=== PATIENT | female | born 1955 | race Caucasian/White ===

== ENCOUNTER 2017-01-29 07:21 | Day surgery (SDC) | payer BC ==
--- NOTE | 2017-01-26 14:03 | HP ---
CC: Jono Quintero MD; Dr. Navarrete in [facility] * ADMITTING HISTORY AND PHYSICAL: DATE OF ADMISSION: 01/29/17 ADMITTING DIAGNOSES: 1. Right hydronephrosis. 2. Right ureteropelvic junction obstruction. PLANNED PROCEDURE: Right retrograde pyelogram, right stent insertion, possible balloon dilatation. SURGEON: Dr. Thompson. ADMITTING HISTORY AND PHYSICAL: Nell Atkinson is a 61-year-old lady who I had originally evaluated about a year ago for right hydronephrosis secondary to ureteropelvic junction obstruction. She subsequently was worked up after stent removal and a diagnosis of right ureteropelvic junction obstruction was confirmed. She was referred to Dr. Navarrete for a robotic pyeloplasty. For several reasons, I found out recently that the pyeloplasty was not done and a followup ultrasound in my office revealed increase in right hydronephrosis with increased cortical echogenicity. She is now being brought in for right stent insertion prior to any definitive therapy for the ureteropelvic junction obstruction. PAST MEDICAL HISTORY: Significant for; 1. Right ureteropelvic junction obstruction. 2. Parkinson's. 3. Hypertension. 4. History of fibroid uterus. 5. Asthma. MEDICATIONS: On admission, 1. Albuterol 2 puffs every 4 hours as needed. 2. Pulmicort inhaler twice daily. 3. Carbidopa/levodopa 25/100 one tablet 3 times a day. 4. Clonazepam 0.125 mg half tablet daily. 5. Sunni one tablet daily. 6. Hydrochlorothiazide 25 mg daily. 7. Isradipine 2.5 mg twice a day. 8. Singulair 10 mg daily. 9. Azilect 1 mg daily. 10. ReQuip 2 mg daily. 11. Zoloft 50 mg daily. ALLERGIES: No known drug allergies. REVIEW OF SYSTEMS: She denies any chest pain or shortness of breath. There is no history of diabetes mellitus. PHYSICAL EXAMINATION GENERAL: Physical exam reveals a pleasant middle-aged lady. VITAL SIGNS: Blood pressure is 116/78, pulse 68 per minute and regular, oxygen saturation 98% on room air. LUNGS: Clear bilaterally. CARDIOVASCULAR EXAM: Regular rate and rhythm. S1, S2. ABDOMEN: Soft with mild right flank tenderness. IMPRESSION: A 61-year-old lady with right ureteropelvic junction obstruction who has had progression of right hydronephrosis and increased right renal cortical echogenicity. PLAN: The plan is for right retrograde, right stent insertion, possible balloon dilatation. [id number]/[facility] #: [id number] MTDD
[~2017-01-29 07:21] MED LIST: Acetaminophen TAB* 325 MG ONE; Acetaminophen TAB* 325 MG PO ONE; Buffered Lidocaine 0.9% SYRIN* 5 ML/SYR SYRINGE INTRADERM ONE; Buffered Lidocaine 0.9% SYRIN* 5 ML/SYR SYRINGE ONE; Dexamethasone IV* 4 MG/ML 1 ML (4 MG) ONE; Famotidine IV* 10 MG/ML 2 ML (20 mg) IV ONE; Famotidine IV* 10 MG/ML 2 ML (20 mg) ONE; Furosemide IV* 10 MG/ML 2 ML VIAL (20 MG) ONE; Lidocaine 2% PF * 5 ML VIAL ONE; Midazolam* 1 MG/ML 2 ML VIAL (2 MG) ONE; Ondansetron INJ* 2 MG/ML VIAL IV ONE; Ondansetron INJ* 2 MG/ML VIAL ONE; Propofol* 10 MG/ML 20 ML BTL IV PUSH ONE; cefTRIAXone(*) 2 GM ADDV.VIAL IVPB ONE; fentaNYL* 50 MCG/ML 2 ML VIAL (100 MCG VIAL) ONE
[2017-01-29] MEDS ORDERED: Iohexol 180 (CONTRAST) 10 ML SDV IV ONE (08:17)
[2017-01-29] MEDS ORDERED: fentaNYL* 50 MCG/ML 2 ML VIAL (100 MCG VIAL) IV PRN (08:55)
[2017-01-29] MEDS ORDERED: oxyCODONE TAB* 5 MG TAB PO PRN (08:55)
[2017-01-29] MEDS ORDERED: Scopolamine 1.5 mg* PATCH TRANSDERM PRN (08:55)
[2017-01-29] MEDS ORDERED: Ibuprofen TAB* 600 MG PO PRN (08:55)
[2017-01-29] MEDS ORDERED: Naloxone* 0.4 MG/ML 10 ML VIAL ONE (09:25)
--- NOTE | 2017-01-29 09:53 | RAD ---
INDICATION: Right ureteral stent placement COMPARISON: February 02, 2016 FINDINGS: 11 seconds of fluoroscopy were provided for the urology department. Fluoroscopic spot imaging of the abdomen were obtained for operative control and show right ureteral stent placement. The collecting system is again noted to be dilated. CPT II Codes: 6045F (fluoro time doc)
[2017-01-29] MEDS ORDERED: Levalbuterol 1.25MG/0.5ML NEB ONE (10:32)
--- NOTE | 2017-01-29 11:12 | RAD ---
Indication: Postop RIGHT ureteral stent placement and balloon dilatation. Comparison: January 28, 2016 CT abdomen and October 30, 2004 chest radiograph. Technique: Upright AP 1050 hours Report: Prominence of the interstitial markings with thickened peripheral intralobular septa. Patchy ill-defined alveolar consolidation most prominent in the LEFT midlung zone. Negative for pleural effusion or pneumothorax. Upper normal heart size. Only mild prominence of the central pulmonary vasculature. IMPRESSION: Postop interstitial and patchy alveolar pulmonary edema.
[2017-01-29] MEDS ORDERED: Furosemide IV* 10 MG/ML 2 ML VIAL (20 MG) ONE (11:23)
[2017-01-29] MEDS ORDERED: Ibuprofen TAB* 600 MG ONE (11:41)
[2017-01-29 13:38] VITALS: BP 123/73
--- NOTE | 2017-01-29 15:47 | OP ---
CC: Dr. Jono Quintero * DATE OF OPERATION: 01/29/17 - [facility] DATE OF : 59 SURGEON: Jared Thompson MD ANESTHESIOLOGIST: Dr. Ashley. ANESTHESIA: General. PRE-OP DIAGNOSES: 1. Right hydronephrosis. 2. Right ureteropelvic junction obstruction. POST-OP DIAGNOSES: 1. Right hydronephrosis. 2. Right ureteropelvic junction obstruction. OPERATIVE PROCEDURE: Cystoscopy, right retrograde pyelogram, right ureteral dilatation, and right stent insertion. COMPLICATIONS: None. POSTOPERATIVE CONDITION: Stable. STENT USED: An 8.5 Kinyarwanda 28 cm silicone stent, right ureter. INDICATIONS: Nell Atkinson is a 61-year-old lady with a ureteropelvic junction obstruction. She had previously undergone stent insertion a year ago and had subsequently seen Dr. Navarrete for a robotic pyeloplasty. She did not go through with that, however, and on a recent ultrasound was noted to have worsening hydronephrosis. OPERATIVE FINDINGS: 1. Normal-appearing bladder. 2. Extrinsic pressure, posterior bladder wall secondary to uterine fibroids. 3. Severe right hydronephrosis with narrowing and tortuosity at right ureteropelvic junction consistent with a primary ureteropelvic junction obstruction. DESCRIPTION OF PROCEDURE: After induction of general anesthesia the patient was placed on the table in dorsal lithotomy position. Sequential compression devices were in place and functioning. Initial cystoscopy revealed normally located right and left ureteral orifices. There was extrinsic pressure noted on the posterior bladder wall secondary to uterine fibroids (this has been documented on a previous ultrasound). A right retrograde pyelogram revealed a normal-appearing distal, mid, and proximal right ureter at the ureteropelvic junction. There was definite narrowing and tortuosity of the ureter. A hydrophilic wire was used to straighten out the ureter in that area and the wire was then advanced into the proximal collecting system. Once this was done the ureteropelvic junction could be dilated initially to 4-Kinyarwanda using an open- ended catheter and then subsequently to 8 Kinyarwanda. Once this was accomplished an 8.5-Kinyarwanda 28 cm silicone stent was introduced and positioned under fluoroscopy with good proximal and distal positioning obtained. The bladder was emptied. The patient tolerated the procedure satisfactorily and was transferred back to the recovery area in stable condition. [id number]/[facility] #: [id number] [facility]ade
[2017-02-01] MEDS ORDERED: Scopolomine PATCH Remove* 1 NOTE MISC PATCH OFF ONE (08:57)
== END 2017-01-29 13:38 | disposition home or self-care (01) ==
LOC: OR 07:21
PROVIDERS: ATTEND Urology
DX: N13.1 Hydronephrosis with ureteral stricture, not elsewhere classified (principal); D25.9 Leiomyoma of uterus, unspecified; I10 Essential (primary) hypertension; J45.909 Unspecified asthma, uncomplicated; G20 Parkinson's disease
CPT/HCPCS: 71010; 74420; A9270-GY; C1876; J0696; J1100; J1940; J2250; J2310; J2405; J2704; J3010